=== PATIENT | female | born 1990 | race Caucasian/White ===

== ENCOUNTER 2016-11-22 10:12 | Inpatient (IN) | payer BC ==
[~2016-11-22] VITALS: Ht 170.2 cm; Wt 97.5 kg
[~2016-11-22 10:12] MED LIST: PRENA1 CHEW TA1.4 M1 PO; TYLENOL325 M2 PO
[2016-11-22 11:03] LABS: BASO % 0.2 % (0-2); EOSINOPHIL ABSOLUTE COUNT 0.1 tho/cmm (0.0-0.7); HCT-HEMATOCRIT 31.4 % (34.0-49.0); HGB-HEMOGLOBIN 10.4 gm/dl (12.0-15.5); IMMATURE GRANULOCYTES ABSOLUTE 0.03 tho/cmm (0-0.03); IMMATURE GRANULOCYTES PERCENT 0.3 % (0-0.3); LYMPH % 23.5 % (20-45); LYMPH ABSOLUTE COUNT 2.1 tho/cmm (0.8-4.5); MCH (MEAN CORPUSCULAR HGB) 27.2 pg (28.0-32.0); MCHC MEAN CORPUSCULAR HGB CONC 33.1 % (32.0-36.0); MCV (MEAN CELL VOLUME) 82.2 fl (82.0-96.0); MEAN PLATELET VOLUME 11.4 cmc (9.4-12.4); MONOCYTE ABSOLUTE COUNT 0.7 tho/cmm (0.0-1.2); NEUTROPHIL ABSOLUTE COUNT 5.9 tho/cmm (1.6-8.0); NEUTROPHIL-AUTOMATED 5.9 tho/cmm (1.6-8.0); PLATELET COUNT 165 tho/cmm (150-450); RED BLOOD COUNT 3.82 mil/cmm (4.00-5.20); RED CELL DISTRIBUTION WIDTH 14.1 % (12.4-16.4); WHITE BLOOD COUNT 8.8 tho/cmm (4.0-10.0)
[2016-11-25] MEDS ORDERED: IBUPROFEN800 M1 PO (01:51)
[2016-11-25] MEDS ORDERED: FEOSOL325 M1 PO (01:53)
[2016-11-25] MEDS ORDERED: PERCOCET 5-3251 EACH PO (01:53)
[2016-11-25] MEDS ORDERED: COLACE100 M1 PO (01:54)
== END 2016-11-25 13:55 | DRG 766 ==
LOC: EDBD → LDR 10:12 → OBGE 10:12 → LDR 12:00 → OBGE 13:28 → LDR 20:46 → OBGE 11-23 01:03
PROVIDERS: ADMIT Advanced Practice Midwife
PROC: 10D00Z1 Extraction of Products of Conception, Low, Open Approach (ICD-10-PCS; principal; 2016-11-22)
DX: O44.03 Complete placenta previa NOS or without hemorrhage, third trimester (principal); D64.9 Anemia, unspecified; Z3A.37 37 weeks gestation of pregnancy; Z37.0 Single live birth; O90.81 Anemia of the puerperium
CPT/HCPCS: J0690; J2550; J2590; J7121